=== PATIENT | male | born 1990 | race Caucasian/White ===

== ENCOUNTER 2017-03-23 10:41 | Emergency (ER) | payer OTHER ==
[2017-03-23 11:05] VITALS: RESP 16; TEMP 96.5
--- NOTE | 2017-03-23 11:09 | PDOC ---
Altered Mental Status HPI - General Chief Complaint: Altered Mental Status Stated Complaint: BUCKED OFF OF HORSE Date Seen by Provider: 03/23/17 Time Seen by Provider: 11:04 Source: POSITIVE: Patient, Other (Family) Exam Limitations: POSITIVE: No limitations Nurse's Notes Reviewed & Considered: Yes - History of Present Illness Initial Comments: This is a 27-year-old male who comes to the emergency room with a history of being bucked off horse. He evidently landed on his left shoulder and head according to family with him. They state that he was initially lucid for about 20 minutes before he started having amnesia of what happened. Patient currently does not member what happened, but does state he has a headache and mild nausea. He does not have any photophobia or visual blurriness. He currently has no neck pain, no chest pain or shortness of breath, no abdominal pain. No significant pain in his left shoulder or arm. Body Location Affected: REPORTS: Head - Patient Home Medications Home Medications: Home Medications Sertraline HCl 50 mg PO DAILY #30 tab 01/18/17 - Patient Allergies Allergies/Adverse Reactions: Allergies Allergy/AdvReac Type Severity Reaction Status Date / Time No Known Allergies Allergy Verified 03/23/17 10:51 Past Medical History - heen HEENT History: Denies History Cardiovascular History: Hypertension Additional Cardiovasular History: Patient states his blood preasure is usually high. Respiratory History: Denies History Gastrointestinal History: Denies History Genitourinary History: Denies History Endocrine History: Denies History Musculoskeletal History: Denies History Neurological History: Denies History Blood Disorders: Denies History Psychiatric History: Anxiety Disorders Additional Psychiatric History: Patient states he takes Zoloft daily. History of Sexually Transmitted Diseases: No Cancer History: Denies History In Past Year Been Physically Harmed or Verbally Threatened: No History of MDRO: No History of Other Communicable Diseases: No Tobacco Use: Never Smoker Alcohol Use: Heavy Type of alcohol normally used: Beer Substance Use Type: None Previous Surgical History: No Significant Family History: No pertinent family hx Past Medical History Reviewed: Reviewed - No Changes ROS - Limitations ROS Limitations: No Limitations Cardiovascular: DENIES: Chest Pain Respiratory: DENIES: Shortness Of Breath Neurological: REPORTS: Confusion, Headache. DENIES: Dizziness, Tingling, Numbness Gastrointestinal: REPORTS: Nausea Musculoskeletal: DENIES: Neck Pain Eyes: DENIES: Vision Changes Altered Mental Physical Exam - General Appearance General Appearance: POSITIVE: Alert, Cooperative, No Acute Distress, No Evidence of Trauma - HEENT HEENT: POSITIVE: Head Inspection Nml, PERRL, EOMI. NEGATIVE: Scleral Icterus - Pupil Size Pupil Size: 4 mm: Bilateral - Neuro/Psych Neurological: POSITIVE: Confusion, Headache. NEGATIVE: Dizziness, Tingling, Numbness, Difficulty Walking Cranial Nerves: POSITIVE: Normal As Tested Peripheral Exam: POSITIVE: No Motor Deficits - Neck Neck: POSITIVE: Supple, Non Tender - Respiratory Respiratory: POSITIVE: No Respiratory Distress, Breath Sounds Normal - Cardiovascular CVS: POSITIVE: Regular Rate and Rhythm, Heart Sounds Normal - Abdomen Additional Abdominal Details: Abdomen is soft, nontender, nondistended, no hepatomegaly. - Skin Skin: POSITIVE: No Rash, Warm, Dry. NEGATIVE: Ecchymosis Altered Mental Status - Results Reviewed By Me Xrays/CTs/US Reviewed: Yes Discussed with Radiologist: Yes - Patient's Progress Pain Medication Addressed: POSITIVE: Yes Re-Examine Time:: 12:47 Re-Examine Comment: Patient's nausea and headache are improved, discussed the CT results with the patient has family Status: POSITIVE: Improved MDM / ED Course: Emergency room course: After initial evaluation, the patient was given a dose of Zofran ODT for his nausea, an injection of Toradol for his headache. He is able to keep down fluids without trouble. His headache improved. CT results were discussed radiologist and subsequently discussed the patient. Diagnosis is a concussion. He will be discharged with prescriptions for Zofran and Toradol. Return to the emergency department if headache gets worse or vomiting is not controlled. Patient Care Time - Estimated PCT Patient Care Time (In Minutes): 15 Vital Signs - Recent Vital Signs Vital Signs: Vital Signs (Last 8 hours) Temp Pulse Resp BP Pulse Ox 03/23/17 10:55 96.5 F L 71 16 156/112 98 Discharge Clinical Impression: Concussion injury of brain Discharge Disposition: Discharged to Home Condition: Stable Patient Instructions Given at Discharge: Concussion (ED)
[2017-03-23] MEDS ORDERED: KETOROLAC 60 MG/2 ML VIAL IM ONE (11:34)
[2017-03-23] MEDS ORDERED: Ondansetron ODT Tab 8 MG TAB PO ONE ×2 (11:34)
--- NOTE | 2017-03-23 12:26 | DI ---
CT HEAD W/O CONTRAST,03/23/2017 11:11 AM: Clinical History: Fall from a horse Previous Exam: None at this facility. Findings: Multiple helically acquired CT images are obtained through the brain without contrast, and demonstrat e normal, symmetric ventricles and other CSF containing spaces. There is no mass, hemorrhage or midli ne shift. The surrounding soft tissue and osseous structures are unremarkable. Impression: Normal CT head.
== END 2017-03-23 13:06 | disposition home or self-care (01) ==
LOC: ER 10:41
DX: S06.0X0A Concussion without loss of consciousness, initial encounter (principal); R11.0 Nausea; R41.0 Disorientation, unspecified; V80.010A Animal-rider injured by fall from or being thrown from horse in noncollision accident, initial encounter
CPT/HCPCS: 70450; 96372; 99283 ×2; J1885; Q0162